=== PATIENT | male | born 1975 | race Caucasian/White ===

== ENCOUNTER 2022-09-12 05:37 | Outpatient (CLI) | payer OTHER ==
[~2022-09-12] VITALS: Ht 175.3 cm; Wt 131.5 kg
[2022-09-12] MEDS ORDERED: DOXY-227 PO (09:01)
[2022-09-12] MEDS ORDERED: CAND16TA29 PO (09:01)
[2022-09-12] MEDS ORDERED: MOME220A4 IH (09:01)
[2022-09-12] MEDS ORDERED: SLF500T PO (09:01)
[2022-09-12] MEDS ORDERED: CHOL10008 PO (09:01)
[2022-09-12] MEDS ORDERED: NAPR-915 PO (09:01)
[2022-09-12] MEDS ORDERED: LEFL20TA18 PO (09:01)
[2022-09-12] MEDS ORDERED: CETI10CA PO (09:01)
== END 2022-09-12 09:07 | disposition home or self-care (01) ==
LOC: PREOP 05:37
PROVIDERS: ATTEND Surgery
DX: Z01.818 Encounter for other preprocedural examination (principal)

== ENCOUNTER 2022-09-17 08:43 | Day surgery (SDC) | payer OTHER ==
[~2022-09-17] VITALS: Ht 175.3 cm; Wt 131.5 kg
[~2022-09-17 08:43] MED LIST: CAND16TA29 PO; CETI10CA PO; CHOL10008 PO; DOXY-227 PO; LEFL20TA18 PO; MOME220A4 IH; NAPR-915 PO; SLF500T PO
[2022-09-17] MEDS ORDERED: LACTATED RINGERS 1,000 ML IV STA (08:54)
[2022-09-17 08:55] VITALS: BP 138/85
[2022-09-17] MEDS ORDERED: HURRICAINE EXT TUBE (BENZOCAINE) ONE (08:59)
[2022-09-17] MEDS ORDERED: LACTATED RINGERS 1,000 ML IV ONE (08:59)
[2022-09-17] MEDS ORDERED: HURRICAINE EXT TUBE (BENZOCAINE) XX PRN (09:00)
--- NOTE | 2022-09-17 09:41 | Progress Note-Pre Operative ---
Pre-Operative Progress Note Date of Available H&P: Sep 11, 2022 Date H&P Reviewed: Sep 17, 2022 Time H&P Reviewed: 09:39 History & Physical: H&P Reviewed, Patient Examed, No changes noted Pre-Operative Diagnosis: +FIT, KRISTEN OTERO DO Sep 17, 2022 09:41
[2022-09-17] MEDS ORDERED: PROPOFOL INJECTION 50 ML IV ONE (09:53)
[2022-09-17] MEDS ORDERED: MIDAZOLAM 2 MG/2 ML (VERSED) VIAL ONE (10:08)
[2022-09-17 10:35] VITALS: BP 110/61
--- NOTE | 2022-09-17 10:39 | Progress Note-Post Operative ---
Post-Operative Progess Note Surgeon (s)/Sfdc Developer (s) Surgeon KRISTEN BENNETT DO Sfdc Developer: Ryan Raphael, MSIV Pre-Operative Diagnosis +FIT, GERD Post-Operative Diagnosis Gastritis Hiatal hernia Esophagitis Int hemorrhoids Procedure & Operative Findings Date of Procedure 09/17/22 Procedure Performed/Findings EGD with bx Colonoscopy PROCEDURE NOTE: After informed consent was obtained, the patient was brought to the endoscopy suite, placed in bed in left lateral decubitus position. He was administered IV sedation by the TRACK SUPERINTENDENT who then monitored vitals the entire time, heart rate, blood pressure and pulse ox and the scope was inserted down the mouth through the esophagus into the stomach. On the way down, noted some mild esophagitis, took a picture, pushed into the stomach, pushed past the antrum into the duodenum; duodenum looked good. Pulled back, noted some severe gastritis of the antrum and the body of the stomach; did a biopsy of the antrum, then retroflexed the scope, saw hiatal hernia, took a picture of this and then pulled the scope into the GE junction, took another picture of the hiatal hernia and then did a biopsy of the GE junction. Pushed the scope back into the stomach, suctioned all the air out of the stomach. At this point pulled the scope up the esophagus and out the mouth. Switched camera, switched gloves, went down below and started the colonoscopy. Pushed all the way into about 140 cm to get all the way to cecum, took a picture of the appendiceal orifice, noted the ileocecal valve and then slowly withdrew the scope. Insufflating to look cir- cumferentially at the ace starting in the cecum, up the ascending colon to the hepatic flexure, then down the transverse colon, splenic flexure, into the descending colon, down into the sigmoid and finally into the rectum. Retroflexed in the rectal vault, saw some minimal internal hemorrhoids and took a picture of them. The patient tolerated the procedure and he recovered in the endoscopy suite. Recommended for repeat colonoscopy in 10 years Anesthesia Type IV sedation by TRACK SUPERINTENDENT Estimated Blood Loss Estimated blood loss (mL): scant Specimens/Packing Specimens Removed antral bx Body of stomach bx GE jxn bx KRITSEN BENNETT DO Sep 17, 2022 10:39
[2022-09-17 10:40] VITALS: BP 112/60
--- NOTE | 2022-09-17 10:40 | Endoscopy Discharge Instruct ---
Endo Procedure/Findings Findings 1.: Gastritis 2.: Hiatal Hernia 3.: Other Findings (mild esophagitis) 4.: Internal Hemorrhoids Discharge Instructions - Activity: You might feel a little sleepy until tomorrow. This is due to the medicine you received to relax you. Until tomorrow, you should: NOT drive a car, operate machinery or power tools. NOT drink any alcoholic beverages. NOT make any important decisions or sign importortant papers. Do not return to work until tomorrow, unless otherwise instructed. Resume previous activities tomorrow. Diet: Start by taking liquids. If you tolerate liquids, advance to solid food. 1.: EGD in 3 years 2.: Colonscopy in 10 years Notify Physician - If you experience excessive bleeding, unusual abdominal pain, fever, or chest pain, contact your doctor immediately. KRISTEN BENNETT DO Sep 17, 2022 10:40
[2022-09-17 10:45] VITALS: BP 112/67
--- NOTE | 2022-09-17 11:15 | Anesthesia-General Post-Op ---
MAC Patient Condition Mental Status/LOC: Same as Preop Cardiovascular: Satisfactory Nausea/Vomiting: Absent Respiratory: Satisfactory Pain: Controlled Complications: Absent Post Op Complications Complications None Follow Up Care/Instructions Patient Instructions None needed. Anesthesiology Discharge Order Discharge Order Patient is doing well, no complaints, stable vital signs, no apparent adverse anesthesia problems. No complications reported per nursing. ROSALIE PEDRO CRNA Sep 17, 2022 11:15
[2022-09-17 12:05] VITALS: BP 112/67
== END 2022-09-17 12:15 | disposition home or self-care (01) ==
LOC: ENDO 08:43
PROVIDERS: ATTEND Surgery
DX: K29.50 Unspecified chronic gastritis without bleeding (principal); K44.9 Diaphragmatic hernia without obstruction or gangrene; K21.00 Gastro-esophageal reflux disease with esophagitis, without bleeding; K64.8 Other hemorrhoids; K31.89 Other diseases of stomach and duodenum; E66.01 Morbid (severe) obesity due to excess calories; Z68.41 Body mass index [BMI] 40.0-44.9, adult; Z87.891 Personal history of nicotine dependence; Z80.0 Family history of malignant neoplasm of digestive organs
CPT/HCPCS: 88305; 88312

== ENCOUNTER 2023-02-21 14:28 | Outpatient (RCR) | payer OTHER | END 2023-02-24 | disposition home or self-care (01) | PROVIDERS: ATTEND Nurse Practitioner Family | DX: M25.531 Pain in right wrist (principal); R20.0 Anesthesia of skin ==

== ENCOUNTER 2023-03-12 22:48 | Emergency (ER) | payer OTHER ==
[~2023-03-12] VITALS: Ht 175 cm; Wt 118.0 kg
[2023-03-12 22:53] VITALS: BP 149/97
[2023-03-13] MEDS ORDERED: KETOROLAC 60 MG/2 ML VIAL IM ONE (00:15)
--- NOTE | 2023-03-13 00:17 | ED Upper Extremity ---
General Chief Complaint: Upper Extremity Stated Complaint: WRIST PAIN Nursing Triage Note: Pt presents with c/o increasing R wrist pain and hand pain. He states he's been doing physical therapy and had an MRI on arm for possible carpal tunnel. Tonight pain has worsened and has numbness in 3rd and 4th digits. Source: patient Exam Limitations: no limitations History of Present Illness Date Seen by Provider: March 12, 2023 Time Seen by Provider: 23:55 Initial Comments This 48-year-old gentleman presents to the emergency room with complaints of pain in the right wrist radiating down into his hand and third and fourth finger. The ulnar aspect of the fifth finger is spared. His symptoms are p resumed to be related to carpal tunnel syndrome. He has had an MRI of his arm with inconclusive findings. He has been directed to physical therapy at [facility]. He had therapy earlier today. His primary care is provided at the [facility] in [place]. He does not have a local provider. He has been using naproxen which has minimal benefit. He does not like to use opioids be cause they trigger migraines. He used gabapentin previously without much benefit, but he was using only the 100 mg dose. He has been referred for EMG testing in [place], but that is not scheduled until May. He has not seen an orthopedic provider. 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 He has paresthesias in the fingers but sensation is intact. He does use a brace when he is sleeping or working. He denies any acute injury. 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 Symptoms have been ongoing and progressive for months. He has history of a cervical fusion but no significant neck symptoms at this time. Allergies and Home Medications Allergies Coded Allergies: lisinopril (Unverified Adverse Reaction, Unknown, 09/12/22) Patient Home Medication List Home Medication List Reviewed: Yes Candesartan Cilexetil (Candesartan Cilexetil) 16 Mg Tablet, 16 MG PO DAILY, (R eported) Entered as Reported by: RUSTY MONTAGUE on 09/12/22900 Cetirizine HCl (Zyrtec) 10 Mg Capsule, 10 MG PO DAILY, (Reported) Entered as Reported by: RUSTY MONTAGUE on 09/12/22900 Cholecalciferol (Vitamin D3) (Vitamin D3) 25 Mcg (1000 Unit) Tab.chew, 25 MCG PO DAILY, (Reported) Entered as Reported by: RUSTY MONTAGUE on 09/12/22900 Doxycycline Hyclate (Doxycycline Hyclate) 100 Mg Tablet.dr, 100 MG PO BID, (Reported) Entered as Reported by: RUSTY MONTAGUE on 09/12/22900 Gabapentin (Neurontin) 300 Mg Capsule, 300 MG PO Q8H PRN for PAIN BREAKTROUGH Prescribed by: TRISTON ORTIZ on 03/13/23 0019 Leflunomide (Leflunomide) 20 Mg Tablet, 20 MG PO DAILY, (Reported) Entered as Reported by: RUSTY MONTAGUE on 09/12/22900 Mometasone Furoate (Asmanex) 220 Mcg/Actuation (120 Doses) Aer.pow.ba, 220 MCG IH DAILY, (Reported) Entered as Reported by: RUSTY MONTAGUE on 09/12/22900 Naproxen (Naproxen) 500 Mg Tablet, 500 MG PO Q12H, (Reported) Entered as Reported by: RUSTY MONTAGUE on 09/12/22900 Sulfasalazine (Sulfasalazine) 500 Mg Tablet, 1,500 MG PO BID, (Reported) Entered as Reported by: RUSTY MONTAGUE on 09/12/22900 Tramadol HCl (Tramadol HCl) 50 Mg Tablet, 50 MG PO Q6H PRN for PAIN BREAKTROUGH Prescribed by: TRISTON ORTIZ on 03/13/23 0020 Review of Systems Constitutional: no symptoms reported EENTM: no symptoms reported Respiratory: no symptoms reported Cardiovascular: no symptoms reported Gastrointestinal: no symptoms reported Genitourinary: no symptoms reported Musculoskeletal: see HPI Skin: no symptoms reported Psychiatric/Neurological: See HPI Past Rtoilkm-Buryqm-Zybhxb Hx Patient Social History Tobacco Use?: Yes Tobacco type used: Cigarettes Smoking Status: Light Tobacco Smoker Use of E-Cig and/or Vaping dev: No Substance use?: No Alcohol Use?: Yes Alcohol Frequency: Rarely Immunizations Up To Date Influenza Vaccine Up-to-Date: No; Not Current First/Initial COVID19 Vaccinat: YES Second COVID19 Vaccination Ryan: YES Third COVID19 Vaccination Date: NO Seasonal Allergies Seasonal Allergies: Yes Past Medical History Surgeries: Yes (LASIK, ANKLE, FUSION C5-C6 deviated septum, nasal polyps) Eye Surgery, Orthopedic, Vasectomy Respiratory: Yes Asthma, Sleep Apnea, COPD Currently Using CPAP: Yes Cardiac: Yes Hypertension Neurological: Yes Headaches /Migraines Genitourinary: No Gastrointestinal: No Musculoskeletal: Yes (Chronic neck pain, right carpal tunnel syndrome) Endocrine: Yes Diabetes, Non-Insulin dep HEENT: No Cancer: No Psychosocial: Yes Anxiety, Depression Integumentary: No Blood Disorders: No Physical Exam Vital Signs Vital Signs - First Documented 03/12/23 22:53 Temp 36.3 Pulse 85 Resp 16 B/P (MAP) 149/97 (114) Capillary Refill : Less Than 3 Seconds Height, Weight, BMI Height: '" Weight: lbs. oz. 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 Paresthesias p resent. Sensation grossly intact.) Neurologic/Psychiatric: alert, normal mood/affect, oriented x 3 Skin: normal color, warm/dry Progress/Results/Core Measures Results/Orders My Orders Orders - TRISTON TEAGUE MD Ketorolac Injection (Toradol Injection) (03/13/23 00:15) Medications Given in ED Current Medications Medications Dose Ordered Sig/Haja Route Start Time Stop Time Status Last Admin Dose Admin Ketorolac Tromethamine 60 mg ONCE ONCE IM 03/13/23 00:15 03/13/23 00:16 DC 03/13/23 00:24 60 MG Vital Signs/I&O 03/12/23 22:53 Temp 36.3 Pulse 85 Resp 16 B/P (MAP) 149/97 (114) Blood Pressure Mean: 114 Progress Progress Note : Progress Note Patient was given a Toradol injection for acute treatment of pain. I had an extensive conversation with him about tactics for managing his pain and using his commercial insurance to try to expedite evaluation and referral to an ort hopedist. Patient was presented with options and elected to receive prescriptions for a higher dose of gabapentin and tramadol. See discharge instructions for further discussion. Departure Impression Primary Impression: Right carpal tunnel syndrome Disposition: 01 HOME, SELF-CARE Condition: Improved Departure-Patient Inst. Decision time for Depature: 00:13 Referrals: LEONIDES WAGNER APRN (PCP) Primary Care Physician PARRIS LYNN MD, MICHAEL P MD Patient Instructions: Carpal Tunnel Release, Carpal Tunnel Syndrome Add. Discharge Instructions: For primary pain control you may continue using naproxen 500 mg twice daily. Skip your dose this evening because you had Toradol in the emergency room which is in the same class as naproxen. For added pain control you may use any or all of the followin. Tylenol (acetaminophen) up to 1000 mg every 6 hours as needed. 2. Ultram (tramadol) as prescribed. 3. Gabapentin (Neurontin) as prescribed. Gabapentin and Ultram both have potential to be sedating. Please use with caution. Avoid driving, operating machinery, or making important decisions while on these medications. Ultram additionally has the potential to cause constipation. You may wish to use a stool softener such as Colace while on Ultram. Consider using your commercial insurance in an effort to expedite evaluation and definitive treatment for carpal tunnel syndrome. It may also be advisable to check with other facilities in nearby [facility] areas such as the [place], [facility], or [facility] to determine if EMG studies could be performed sooner in one of those locations. Your commercial insurance may also allow you to schedule directly with an orthopedic provider. Please check preferred providers and your insurance policy. A couple of local orthopedic providers are listed below. You may continue doing nonpharmacologic therapies including bracing and 20- minute intervals of icing. Limit strenuous or repetitive use of the wrist is much as possible. Return to care if you have worsening symptoms despite following these instructions. Follow-up with a primary care provider soon as possible for continued long-term pain management. All discharge instructions reviewed with patient and/or family. Voiced understanding. Scripts Gabapentin (Neurontin) 300 Mg Capsule 300 MG PO Q8H PRN for PAIN STEPHANIETRWILLIE, #15 CAP Prov: TRISTON TEAGUE MD 03/13/23 Tramadol HCl (Tramadol HCl) 50 Mg Tablet 50 MG PO Q6H PRN for PAIN BREAKTROUGH, #20 TAB Prov: TRISTON TEAGUE MD 03/13/23 TRISTON TEAGUE MD March 13, 2023 00:17
[2023-03-13] MEDS ORDERED: GABA300C PO (00:19)
[2023-03-13] MEDS ORDERED: TRAM50TA3 PO (00:19)
== END 2023-03-13 00:27 | disposition home or self-care (01) ==
LOC: EDUNIT# 22:48 → ER 22:49
DX: G56.01 Carpal tunnel syndrome, right upper limb (principal); G47.30 Sleep apnea, unspecified; F17.210 Nicotine dependence, cigarettes, uncomplicated; Z99.89 Dependence on other enabling machines and devices
CPT/HCPCS: 99284

== ENCOUNTER 2023-03-26 10:15 | Outpatient (RCR) | payer OTHER ==
[~2023-03-26 10:15] MED LIST changes: +GABA300C PO; +TRAM50TA3 PO
== END 2023-03-27 | disposition home or self-care (01) ==
PROVIDERS: ATTEND Nurse Practitioner Family
DX: M25.531 Pain in right wrist (principal)

== ENCOUNTER 2023-04-25 10:31 | Outpatient (RCR) | payer OTHER | END 2023-04-26 | disposition home or self-care (01) | PROVIDERS: ATTEND Nurse Practitioner Family | DX: M25.531 Pain in right wrist (principal) ==

== ENCOUNTER 2023-05-20 13:00 | Outpatient (RCR) | payer OTHER | END 2023-05-20 16:05 | disposition home or self-care (01) | PROVIDERS: ATTEND Nurse Practitioner Family | DX: M25.531 Pain in right wrist (principal) ==

== ENCOUNTER 2023-05-27 23:20 | Emergency (ER) | payer OTHER ==
[~2023-05-27] VITALS: Ht 175 cm; Wt 120.0 kg
[2023-05-27 23:30] VITALS: BP 157/106
--- NOTE | 2023-05-27 23:31 | ED EENT ---
History of Present Illness General Stated Complaint: RIGHT EYE SWOLLEN/RED/PAIN History of Present Illness Date Seen by Provider: May 27, 2023 Time Seen by Provider: 23:30 Initial Comments 48-year-old male presents with right eye that is get some drainage, erythema, scratchy feeling. Reports that started couple days ago has been getting worse. Denies any vision changes and no injury. Allergies and Home Medications Allergies Coded Allergies: lisinopril (Unverified Adverse Reaction, Unknown, cough, 03/13/23) cough Patient Home Medication List Home Medication List Reviewed: Yes Candesartan Cilexetil (Candesartan Cilexetil) 16 Mg Tablet, 16 MG PO DAILY, (Reported) Entered as Reported by: RUSTY MONTAGUE on 09/12/22900 Cetirizine HCl (Zyrtec) 10 Mg Capsule, 10 MG PO DAILY, (Reported) Entered as Reported by: RUSTY MONTAGUE on 09/12/22900 Cholecalciferol (Vitamin D3) (Vitamin D3) 25 Mcg (1000 Unit) Tab.chew, 25 MCG PO DAILY, (Reported) Entered as Reported by: RUSTY MONTAGUE on 09/12/22900 Doxycycline Hyclate (Doxycycline Hyclate) 100 Mg Tablet.dr, 100 MG PO BID, (Reported) Entered as Reported by: RUSTY MONTAGUE on 09/12/22900 Gabapentin (Neurontin) 300 Mg Capsule, 300 MG PO Q8H PRN for PAIN BREAKTROUGH Prescribed by: TRISTON ORTIZ on 03/13/23 0019 Leflunomide (Leflunomide) 20 Mg Tablet, 20 MG PO DAILY, (Reported) Entered as Reported by: RUSTY MONTAGUE on 09/12/22900 Mometasone Furoate (Asmanex) 220 Mcg/Actuation (120 Doses) Aer.pow.ba, 220 MCG IH DAILY, (Reported) Entered as Reported by: RUSTY MONTAGUE on 09/12/22900 Naproxen (Naproxen) 500 Mg Tablet, 500 MG PO Q12H, (Reported) Entered as Reported by: RUSTY MONTAGUE on 09/12/22900 Sulfasalazine (Sulfasalazine) 500 Mg Tablet, 1,500 MG PO BID, (Reported) Entered as Reported by: RUSTY MONTAGUE on 09/12/22 0901 Tramadol HCl (Tramadol HCl) 50 Mg Tablet, 50 MG PO Q6H PRN for PAIN BREAKTROUGH Prescribed by: TRISTON ORTIZ on 03/13/23 0020 Review of Systems Review of Systems Constitutional: no symptoms reported Eyes: Drainage, Inflammation Ears: No Symptoms Reported Nose: no symptoms reported Mouth: no symptoms reported Throat: no symptoms reported Respiratory: no symptoms reported Cardiovascular: no symptoms reported Gastrointestinal: no symptoms reported Past Gjqftnx-Bdaxkg-Diiedu Hx Immunizations Up To Date First/Initial COVID19 Vaccinat: YES Second COVID19 Vaccination Ryan: YES Third COVID19 Vaccination Date: NO Seasonal Allergies Seasonal Allergies: Yes Past Medical History Surgeries: Yes (LASIK, ANKLE, FUSION C5-C6 deviated septum, nasal polyps) Eye Surgery, Orthopedic, Vasectomy Respiratory: Yes Asthma, Sleep Apnea, COPD Currently Using CPAP: Yes Cardiac: Yes Hypertension Neurological: Yes Headaches /Migraines Genitourinary: No Gastrointestinal: No Musculoskeletal: Yes (Chronic neck pain, right carpal tunnel syndrome) Endocrine: Yes Diabetes, Non-Insulin dep HEENT: No Cancer: No Psychosocial: Yes Anxiety, Depression Integumentary: No Blood Disorders: No Physical Exam Height, Weight, BMI Height: '" Weight: lbs. oz. kg; 38.00 BMI Method: General Appearance: WD/WN, no apparent distress Eyes: right eye conjunctival inflammation, right eye other (mucopurulent drain age) Cardiovascular: normal peripheral pulses, regular rate, rhythm Respiratory: no respiratory distress, no accessory muscle use Neurologic/Psychiatric: alert, normal mood/affect, oriented x 3 Skin: normal color, warm/dry Progress/Results/Core Measures Results/Orders My Orders Orders - KACEY WAY DO Rx-Tobra/Dexameth Ophth Susp (Rx-Tobrade (05/27/23 23:45) Progress Progress Note : Progress Note Symptoms consistent with conjunctivitis with mucopurulent drainage and irritation. We will start him on TobraDex. He should follow-up with his eye doctor in the next couple days. He is stable and discharged Departure Impression Primary Impression: Conjunctivitis, acute, right eye Qualified Codes: H10.31 - Unspecified acute conjunctivitis, right eye Disposition: 01 HOME, SELF-CARE Condition: Stable Departure-Patient Inst. Referrals: LEONIDES WAGNER APRN (PCP/Family) Primary Care Physician Patient Instructions: Conjunctivitis (pink eye), How to Use Eye Drops Add. Discharge Instructions: Please use eyedrops every 4-6 hours as prescribed. Follow-up with your rum processing operator in 2 to 3 days for recheck sooner if symptoms continue to worsen KACEY WAY DO May 27, 2023 23:31
[2023-05-27] MEDS ORDERED: RX-TOBRA/DEXAMETH (TOBRADEX) OP. SUSP 2.5 ML BTL OP SCH (23:45)
== END 2023-05-28 00:10 | disposition home or self-care (01) ==
LOC: EDUNIT# 23:20 → ER 23:22
DX: H10.31 Unspecified acute conjunctivitis, right eye (principal); G47.30 Sleep apnea, unspecified; Z98.890 Other specified postprocedural states; Z99.89 Dependence on other enabling machines and devices; Z28.310 Unvaccinated for COVID-19
CPT/HCPCS: 99283

== ENCOUNTER 2023-07-08 17:54 | Emergency (ER) | payer OTHER ==
[~2023-07-08] VITALS: Ht 175 cm; Wt 117.0 kg
[2023-07-08 18:15] VITALS: BP 150/89
[2023-07-08] MEDS ORDERED: FLUORESCEIN 1 MG OPHTHALMIC STRIPS OU ONE (18:30)
[2023-07-08] MEDS ORDERED: TETRACAINE 0.5% OPHTH SOLN 4 ML BTL (SINGLE DOSE ONLY) OU ONE (18:30)
[2023-07-08] MEDS ORDERED: BSS 15 ML IR ONE (18:30)
--- NOTE | 2023-07-08 18:41 | ED EENT ---
History of Present Illness General Chief Complaint: Eye Problems Stated Complaint: LEFT EYE PAIN Nursing Triage Note: PT THINKS HE HAS PINK EYE LEFT EYE. Source: patient Exam Limitations: no limitations History of Present Illness Date Seen by Provider: Jul 08, 2023 Time Seen by Provider: 06:22 Initial Comments This 48-year-old gentleman presents to the emergency room with irritation of the left eye since yesterday. He presumes it to be conjunctivitis because he had a similar presentation of the right eye previously. He denies any known injury or foreign body. His eye is irritated and intermittently watery and blurry with no gross vision change. It is not particularly itchy. He denies any recent illness such as URI. The conjunctiva and sclera are mildly erythematous and hyperemic. He uses the [facility] for primary care and the [place] for vision care as well. He does not have a local eye care provider. Allergies and Home Medications Allergies Coded Allergies: lisinopril (Unverified Adverse Reaction, Unknown, cough, 03/13/23) cough Patient Home Medication List Home Medication List Reviewed: Yes Candesartan Cilexetil (Candesartan Cilexetil) 16 Mg Tablet, 16 MG PO DAILY, (Reported) Entered as Reported by: RUSTY MONTAGUE on 09/12/22900 Cetirizine HCl (Zyrtec) 10 Mg Capsule, 10 MG PO DAILY, (Reported) Entered as Reported by: RUSTY MONTAGUE on 09/12/22900 Cholecalciferol (Vitamin D3) (Vitamin D3) 25 Mcg (1000 Unit) Tab.chew, 25 MCG PO DAILY, (Reported) Entered as Reported by: RUSTY MONTAGUE on 09/12/22900 Doxycycline Hyclate (Doxycycline Hyclate) 100 Mg Tablet.dr, 100 MG PO BID, (Reported) Entered as Reported by: RUSTY MONTAGUE on 09/12/22900 Gabapentin (Neurontin) 300 Mg Capsule, 300 MG PO Q8H PRN for PAIN BREAKTROUGH Prescribed by: TRISTON ORTIZ on 03/13/23 0019 Leflunomide (Leflunomide) 20 Mg Tablet, 20 MG PO DAILY, (Reported) Entered as Reported by: RUSTY MONTAGUE on 09/12/22900 Mometasone Furoate (Asmanex) 220 Mcg/Actuation (120 Doses) Aer.pow.ba, 220 MCG IH DAILY, (Reported) Entered as Reported by: RUSTY MONTAGUE on 09/12/22900 Naproxen (Naproxen) 500 Mg Tablet, 500 MG PO Q12H, (Reported) Entered as Reported by: RUSTY MONTAGUE on 09/12/22900 Sulfasalazine (Sulfasalazine) 500 Mg Tablet, 1,500 MG PO BID, (Reported) Entered as Reported by: RUSTY MONTAGUE on 09/12/22900 Tramadol HCl (Tramadol HCl) 50 Mg Tablet, 50 MG PO Q6H PRN for PAIN BREAKTROUGH Prescribed by: TRISTON ORTIZ on 03/13/23 0020 Review of Systems Review of Systems Constitutional: no symptoms reported Eyes: See HPI Ears: No Symptoms Reported Nose: no symptoms reported Mouth: no symptoms reported Skin: no symptoms reported Neurological: No Symptoms Reported Past [id number]-[id number] Hx Patient Social History Tobacco Use?: Yes Tobacco type used: Cigarettes Smoking Status: Current Someday Smoker Substance use?: No Alcohol Use?: Yes Alcohol Frequency: Rarely Immunizations Up To Date First/Initial COVID19 Vaccinat: YES Second COVID19 Vaccination Ryan: YES Third COVID19 Vaccination Date: NO Seasonal Allergies Seasonal Allergies: Yes Past Medical History Surgeries: Yes (LASIK, ANKLE, FUSION C5-C6 deviated septum, nasal polyps) Eye Surgery ([facility]), Orthopedic (C5-C6 fusion, carpal tunnel, ankle), Vasectomy Respiratory: Yes Asthma, Sleep Apnea, COPD Currently Using CPAP: Yes Cardiac: Yes Hypertension Neurological: Yes Headaches /Migraines Genitourinary: No Gastrointestinal: No Musculoskeletal: Yes (Chronic neck pain, right carpal tunnel syndrome) Endocrine: Yes Diabetes, Non-Insulin dep HEENT: No Cancer: No Psychosocial: Yes Anxiety, Depression Integumentary: No Blood Disorders: No Physical Exam Vital Signs Vital Signs - First Documented 07/08/23 18:15 Temp 36.3 Pulse 83 Resp 16 B/P (MAP) 150/89 (109) Pulse Ox 95 O2 Delivery Room Air Height, Weight, BMI Height: '" Weight: lbs. oz. kg; 38.00 BMI Method: General Appearance: WD/WN, no apparent distress Eyes: left eye PERRL, left eye EOMI, left eye conjunctival inflammation, left eye other (Hyperemia of the conjunctiva and sclera. Whitish colored lesion on the inferior iris at about the 7 o'clock position. No foreign bodies or styes. 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, no motor/sensory deficits, alert, normal mood/affect, oriented x 3 Skin: normal color, warm/dry Progress/Results/Core Measures Results/Orders My Orders Orders - TRISTON TEAGUE MD Tetracaine 0.5% Ophth Susana Sdv (Tetracai (07/08/23 18:30) Fluorescein Ophthalmic Strips (Fluoresce (07/08/23 18:30) Balanced Salt Irrigation Soln (Bss Irrig (07/08/23 18:30) Rx-Tobra/Dexameth Ophth Susp (Rx-Tobrade (07/08/23 18:58) Medications Given in ED Current Medications Medications Dose Ordered Sig/Haja Route Start Time Stop Time Status Last Admin Dose Admin Balanced Salt Solution 15 ml ONCE ONCE IR 07/08/23 18:30 07/08/23 18:31 DC 07/08/23 18:34 15 ML Fluorescein Sodium 1 mg ONCE ONCE OU 07/08/23 18:30 07/08/23 18:31 DC 07/08/23 18:34 1 MG Tetracaine HCl 4 ml ONCE ONCE OU 07/08/23 18:30 07/08/23 18:31 DC 07/08/23 18:34 4 ML Vital Signs/I&O 07/08/23 18:15 Temp 36.3 Pulse 83 Resp 16 B/P (MAP) 150/89 (109) Pulse Ox 95 O2 Delivery Room Air Blood Pressure Mean: 109 Progress Progress Note : Progress Note Patient was interviewed and examined at 0622 during the triage process. No foreign bodies, styes, or major injuries were identified on gross examination with low magnification. There was a whitish lesion at the 7 o'clock position over the iris. Patient has not noticed this lesion before. This lesion fluoresced with fluorescein exam. Patient did receive tetracaine prior to fluorescein exam. This finding was communicated to Dr. Salmon, customer services coordinator senior sales consultant. Based on the lesions appearance and history, he believes it may be a corneal dellen. He recommended starting TobraDex tonight and a follow-up exam in his clinic tomorrow. TobraDex was initiated in the ER. Departure Impression Primary Impression: Corneal dellen of left eye Disposition: HOME, SELF-CARE Condition: Stable Departure-Patient Inst. Decision time for Depature: 19:01 Referrals: LEONIDES WAGNER APRN (PCP) Primary Care Physician KALLI SALMON OD Patient Instructions: How to Use Eye Drops Add. Discharge Instructions: Please use the TobraDex eyedrops provided every 2 hours tonight and then every 6 hours tomorrow we will await. You do not need to wake up in the night to administer eyedrops on the schedule. Please see Dr. Salmon at [facility] tomorrow, July 09, at 9:00 AM. With questions or concerns during the night, you may call the ER or the on-call number for Dr. Salmon at [phone]. Follow the prompts for the doctor on- call. If you need to moisten your eye, use the balanced saline eyedrops provided. Do not use them in close proximity to administration of the TobraDex as you may accidentally wash out the TobraDex medication. All discharge instructions reviewed with patient and/or family. Voiced understanding. TRISTON TEAGUE MD Jul 08, 2023 18:41
[2023-07-08] MEDS ORDERED: RX-TOBRA/DEXAMETH (TOBRADEX) OP. SUSP 2.5 ML BTL OU STA (18:58)
== END 2023-07-08 19:12 | disposition home or self-care (01) ==
LOC: EDUNIT# 17:54 → ER 17:57
DX: H18.4 Corneal degeneration (principal); F17.210 Nicotine dependence, cigarettes, uncomplicated
CPT/HCPCS: 99281

== ENCOUNTER 2023-07-25 10:26 | Outpatient (RCR) | payer OTHER | END 2023-07-27 | disposition home or self-care (01) | PROVIDERS: ATTEND Orthopaedic Surgery | DX: G56.03 Carpal tunnel syndrome, bilateral upper limbs (principal) ==

== ENCOUNTER 2023-08-12 14:13 | Outpatient (RCR) | payer OTHER | END 2023-08-12 17:00 | disposition home or self-care (01) | PROVIDERS: ATTEND Orthopaedic Surgery | DX: G56.03 Carpal tunnel syndrome, bilateral upper limbs (principal) ==